=== PATIENT | male | born 1960 | race Caucasian/White ===

== ENCOUNTER 2024-09-03 14:01 | Outpatient (CLI) | payer MEDICARE, BC, SELFPAY | END 2024-09-03 14:02 | disposition home or self-care (01) | LOC: AMB 09-04 12:36 | PROVIDERS: Visit Provider Family Medicine | DX: S29.9XXA Unspecified injury of thorax, initial encounter (principal); W17.89XA Other fall from one level to another, initial encounter; Y93.H3 Activity, building and construction; Y92.9 Unspecified place or not applicable | CPT/HCPCS: A0425; A0427 ==